=== PATIENT | female | born 1995 | race Caucasian/White ===

== ENCOUNTER 2016-11-07 21:48 | Emergency (ER) | payer BC ==
[2016-11-07] MEDS ORDERED: NS 1,000 ML IV ONE (22:37)
[2016-11-07] MEDS ORDERED: KETOROLAC 30 MG/1 ML SDV IVP ONE (22:37)
[2016-11-07] MEDS ORDERED: METOCLOPRAMIDE 10 MG/2 ML VIAL IVP ONE (22:37)
[2016-11-07] MEDS ORDERED: DEXAMETHASONE 10 MG/ML VIAL IVP ONE (22:37)
--- NOTE | 2016-11-07 22:37 | EDPHY ---
H & P Stated Complaint: c/o migraine saldana/n/v x 6-7 hrs HPI/ROS: HPI CHIEF COMPLAINT: Headache HISTORY OF PRESENT ILLNESS: This patient very pleasant 21-year-old female she presents emergency room with 2-3 days of a headache. She describes as a migraine headache similar to her previous headaches. She states that she has a longstanding history of headaches she self-diagnosed herself with a migraine headaches. She has never been evaluated by physician for headache. She never had imaging of her brain. She presents emergency room describes it as ice pick headache right-sided throbbing in nature with visual disturbance. Similar previous headaches. Currently upon arrival to the emergency room her pain is 8/ 10. She denies fever, neck pain or stiff neck. Denies loss of vision. Denies trauma. She did take Excedrin migraine prior to arrival did not greatly helped her headache. Past Medical History: Migraine headaches Past Surgical History: No significant surgical history Social History: Denies daily use of drugs tobacco or alcohol Family History: Noncontributory ROS REVIEW OF SYSTEMS: A comprehensive 10 point review of systems is otherwise negative aside from elements mentioned in the history of present illness. Exam Constitutional appears well nontoxic triage nursing summary reviewed, vital signs reviewed, awake/alert. Eyes normal conjunctivae and sclera, EOMI, PERRLA. HENT normal inspection, atraumatic, moist mucus membranes, no epistaxis, neck supple/ no meningismus, no raccoon eyes. Respiratory clear to auscultation bilaterally, normal breath sounds, no respiratory distress, no wheezing. Cardiovascular rate normal, regular rhythm, no murmur, no edema, distal pulses normal. Gastrointestinal soft, non-tender, no rebound, no guarding, normal bowel sounds, no distension, no pulsatile mass. Genitourinary no CVA tenderness. Musculoskeletal no midline vertebral tenderness, full range of motion, no calf swelling, no tenderness of extremities, no meningismus, good pulses, neurovascularly intact. Skin pink, warm, & dry, no rash, skin atraumatic. Neurologic normal neurological exam nonfocal, awake, alert and oriented x 3, AAOx3, moves all 4 extremities equally, motor intact, sensory intact, CN II-XII intact, normal cerebellar, normal vision, normal speech. Psychiatric normal mood/affect. Heme/Lymph/Immune no lymphadenopathy. Differential Diagnosis: Includes but is not limited to in a particular order, migraine headache, tension headache, cluster headache, intracranial mass, doubt meningitis Medical Decision Making: Plan for this patient IV establishment, abortive medication for migraine she has a normal neurological exam I do not feel that she needs emergent neuro radiographic imaging at this time. If she improves with migraine cocktail I will send her home with Neurology follow-up. She has a normal nonfocal neurological exam. No meningeal signs. Re-evaluation: 2357: Re-evaluation at this time she is feeling much better she tells me her headache is 1/10 after migraine cocktail she is requesting be discharged home. I will refer her to Neurology. She will have a prescription for migraine medicine. Source: Patient - Medical/Surgical History Hx Asthma: No Hx Chronic Respiratory Disease: No Hx Diabetes: No Hx Cardiac Disease: No Hx Renal Disease: No Hx Cirrhosis: No Hx Alcoholism: No Hx HIV/AIDS: No Hx Splenectomy or Spleen Trauma: No Other PMH: migraines - Social History Smoking Status: Never smoked Constitutional: Initial Vital Signs Temperature (C) 36.9 C 11/07/16 21:50 Heart Rate 72 11/07/16 21:50 Respiratory Rate 16 11/07/16 21:50 Blood Pressure 132/77 H 11/07/16 21:50 O2 Sat (%) 96 11/07/16 21:50 O2 Delivery Mode Room Air Allergies/Adverse Reactions: shellfish derived [shrimp] Allergy (Verified 11/07/16 21:54) shrimp Allergy (Verified 11/07/16 21:54) Home Medications: Medication Instructions Recorded EXCEDRIN EXTRA STRENGTH CAPLET 11/07/16 IBUPROFEN 11/07/16 Acet/Caffeine/Buta Fioricet 1 each PO Q6 #10 tab 11/08/16 [Fioricet (*)] Medical Decision Making - Data Points Medications Given: Discontinued Medications Dexamethasone (Decadron Injection) 10 mg IVP EDNOW ONE Stop: 11/07/16 22:38 Last Admin: 11/07/16 23:05 Dose: 10 mg Diphenhydramine HCl (Benadryl Injection) 25 mg IVP EDNOW ONE Stop: 11/07/16 22:38 Last Admin: 11/07/16 23:05 Dose: 25 mg Sodium Chloride (Ns) 1,000 mls @ 0 mls/hr IV ONCE ONE PRN Reason: Wide Open Stop: 11/07/16 22:38 Last Admin: 11/07/16 23:06 Dose: 1,000 mls Ketorolac Tromethamine (Toradol) 30 mg IVP EDNOW ONE Stop: 11/07/16 22:38 Last Admin: 11/07/16 23:05 Dose: 30 mg Metoclopramide HCl (Reglan Injection) 10 mg IVP EDNOW ONE Stop: 11/07/16 22:38 Last Admin: 11/07/16 23:06 Dose: 10 mg Departure - Departure Disposition: Home, Routine, Self-Care Clinical Impression: Headache Qualifiers: Headache type: tension-type Headache chronicity pattern: acute headache Intractability: not intractable Qualified Code(s): G44.209 - Tension-type headache, unspecified, not intractable Condition: Good Instructions: Acute Headache (ED) Referrals: [facility] [Other] - As per Instructions Ji Adkins DO [Medical Doctor] - As per Instructions Prescriptions: Acet/Caffeine/Buta Fioricet [Fioricet (*)] 1 each PO Q6 #10 tab
[2016-11-08 00:20] VITALS: BP 104/54; PULSE 60; RESP 14; TEMP 97.7; O2SAT 95
== END 2016-11-08 00:14 | disposition home or self-care (01) ==
DX: G44.209 Tension-type headache, unspecified, not intractable (principal)
CPT/HCPCS: 96374; J1200; J1885; J2765